=== PATIENT | male | born 1995 | race African-American/Black ===

== ENCOUNTER 2023-12-22 04:06 | Emergency (ER) | payer SELFPAY ==
[~2023-12-22] VITALS: Ht 165.1 cm; Wt 53.0 kg
[2023-12-22] MEDS: LIDOCAINE 1% MDV 20ML VIAL SC ONE (06:25)
[2023-12-22 07:28] VITALS: BP 117/63; TEMP 97.9; O2SAT 96
[2023-12-22] MEDS: BACITRACIN OINTMENT 30GM TUBE TOP ONE (08:04)
== END 2023-12-22 08:10 | disposition home or self-care (01) ==
LOC: M ED 04:06
DX: S61.214A Laceration without foreign body of right ring finger without damage to nail, initial encounter (principal); W25.XXXA Contact with sharp glass, initial encounter; F17.200 Nicotine dependence, unspecified, uncomplicated; Y92.009 Unspecified place in unspecified non-institutional (private) residence as the place of occurrence of the external cause; Y93.89 Activity, other specified; Y99.9 Unspecified external cause status